=== PATIENT | female | born 1945 | race Caucasian/White ===

== ENCOUNTER → 2017-08-18 | Outpatient (CLI) | payer BC, MEDICARE ==
--- NOTE | 2017-08-18 17:23 | CT ---
EXAM DESCRIPTION: Abdomen/Pelvis w/Contrast: CT. CLINICAL HISTORY: Malignant neoplasm of cervix uteri, unspecified COMPARISON: None. TECHNIQUE: Spiral-axial scans at 5 x 5 mm intervals through the abdomen and pelvis after water-soluble oral contrast and nonionic IV contrast. Coronal and sagittal 2.0 mm reconstructions. 5- minute delayed 5.0 mm scans, from liver through the pelvis. No adverse reactions. Total Exam DLP: 1389 mGy-cm. This exam was performed according to our departmental dose-optimization program which includes automated exposure control, adjustment of the mA and/or kV according to patient size and/or use of iterative reconstruction technique; to reduce radiation dose to as low as reasonably achievable (ALARA). FINDINGS: Pelvic Organs: In the lower uterine segment/cervix, there is a ill-defined mass with decreased enhancement to the right of midline enlarging the outer capsule of the uterus and cervix. This mass measures 1.5 cm transverse, 2 cm craniocaudal, and 1.7 cm AP. Irregular margins on the inferior aspect of this mass which is minimally enhancing, and abutting the anterior rectum. Air bubbles within this tissue interface of the rectum and the mass. The mass is also abutting contrast-filled small bowel on its posterior and right lateral aspect. The uterus is unremarkable. Minimally enhancing soft tissue mass elliptical shaped, in the right adnexa, measuring 2.2 x 2.0 x 1.4 cm. Large fatty density mass measuring 3.1 x 3.2 cm transverse plane in the left adnexa, with well-defined valencia and thin rim of minimally enhancing tissue. This is also abutting the sigmoid colon and contrast filled loops of small bowel. Small Bowel: Fluid and oral contrast distally with no wall thickening or fluid levels, normal caliber. Terminal Ileum/Cecum: Normal caliber containing oral contrast. Normal caliber of the appendix containing gas. Normal density of the surrounding soft tissues. Colon: Minimal oral contrast proximally with moderate amount of fecal material proximal and transverse colon. Diverticula descending colon no free fluid. Rectum normal caliber but with loss of interface to the cervical mass as previously described. Lung bases and pleura: Minimal atelectasis or scarring in the right base. Liver, Stomach, Spleen, and adrenal glands: Small sliding hiatal hernia. Otherwise unremarkable. Pancreas, Gallbladder, Ducts: Gallbladder Minimal wall thickening. Normal density of the surrounding fat. Pancreas and ducts are negative. Kidneys and Ureters: Negative. Mesentery: Increased stranding and fascial thickening around the lower uterine segment and cervix as previously described. No free intraperitoneal air. Aorta: Moderate to severe atherosclerotic changes and calcification. Spine and Bony Pelvis: Degenerative changes. Advanced spondylosis and disc space loss at L5-S1. Minimal spondylosis L1-2. Minimal bilateral hip joint space narrowing. No bone destruction. Bilateral sclerosis periarticular SI joints on the iliac wings. Abdominal Wall/Back Soft Tissues: Negative. IMPRESSION: 1. Irregularly enhancing mass with central low-density in the lower uterine segment cervix region to the right of midline expanding the capsule. Abutting loops of small bowel fashion and the rectum. Ill-defined inferior borders extending into the fatty tissues. Ill-defined partially enhancing infarct interface with the anterior and anterior right lateral rectum. Cannot exclude early abscess or fistula formation. 2. Fatty mass in the left adnexa could represent mature teratoma or dermoid in the ovary. Minimal enhancement of the surrounding capsule. No fatty stranding. Probable right ovary versus enlarged right iliac lymph node. 3. Upper abdominal organs and kidneys are unremarkable, except for minimal wall thickening of the gallbladder. No mass or abnormal enhancement. 4. Diverticulosis descending colon and proximal sigmoid. No evidence of complications. Electronically signed by: Venu Payton MD 08/18/2017 5:22 PM CDT
== END | disposition home or self-care (01) ==
LOC: CT 07:59
PROVIDERS: ATTEND Obstetrics & Gynecology
DX: C53.9 Malignant neoplasm of cervix uteri, unspecified (principal)

== ENCOUNTER → 2017-12-26 | Outpatient (CLI) | payer MEDICARE ==
--- NOTE | 2017-12-26 11:34 | US ---
EXAM DESCRIPTION:Venous,Lower Extremity RT CLINICAL HISTORY:DVT COMPARISON: None TECHNIQUE: Grayscale and color Doppler sonographic evaluation of lower extremity deep venous structures. FINDINGS: Common femoral, superficial femoral, popliteal , peroneal and posterior tibial veins in right lower extremity are patent with full compressibility. No intraluminal filling defect identified in these deep venous structures. IMPRESSION: No sonographic evidence of deep venous thrombosis (DVT) in right lower extremity Electronically signed by: Sage Carolina MD 12/26/2017 11:33 AM [employer] [address] [employer]
== END ==
LOC: US 10:45
PROVIDERS: ATTEND Internal Medicine Hematology & Oncology
DX: I82.409 Acute embolism and thrombosis of unspecified deep veins of unspecified lower extremity (principal); M79.89 Other specified soft tissue disorders

== ENCOUNTER → 2018-01-16 | Outpatient (CLI) | payer MEDICARE | LOC: LAB.O 07:29 | PROVIDERS: ATTEND Family Medicine | DX: E78.5 Hyperlipidemia, unspecified (principal) ==

== ENCOUNTER → 2018-05-07 | Outpatient (CLI) | payer MEDICARE | LOC: LAB.O 08:22 | PROVIDERS: ATTEND Family Medicine | DX: E78.5 Hyperlipidemia, unspecified (principal) ==